=== PATIENT | male | born 1980 | race Caucasian/White ===

== ENCOUNTER 2016-12-31 11:09 | Inpatient (IN) | payer MEDICAID ==
--- NOTE | 2016-12-31 11:25 | CPEKG ---
Heart Rate: 125 RR Interval: 480 QRSD Interval: 108 QT Interval: 336 QTC Interval: 485 QRS [place]: 75 T Wave [place]: 78 EKG Severity - ABNORMAL ECG - EKG Impression: ATRIAL FLUTTER, A-RATE 220 EKG Impression: TIEN OF NORMAL SINUS RHYTHM PRIOR TO THE RUN OF ATRIAL FIB/FLUTTER Electronically Signed By: Caden Morris 02-Jan-2017 08:45:42
[2016-12-31 12:08] LABS: % IMMATURE GRANULYOCYTES 0.2 % (0.0-1.1); ABSOLUTE IMMATURE GRANULOCYTES 0.01 10^3/uL (0.00-0.10); ADD DIFF? NO; ADD MORPH? NO; ADD SCAN? NO; ATYPICAL LYMPHOCYTE FLAG 10 (0-99); FRAGMENT RBC FLAG 0 (0-99); HEMATOCRIT 52.7 % (40.0-51.0); HEMOGLOBIN 18.2 g/dL (13.7-17.5); LEFT SHIFT FLG 0 (0-99); LIPEMIA HEMOLYSIS FLAG 90 (0-99); MEAN CELL HEMOGLOBIN 29.4 pg (27.9-34.1); MEAN CELL HEMOGLOBIN CONCENTR. 34.5 g/dL (32.4-36.7); MEAN CELL VOLUME 85.3 fL (81.5-99.8); MEAN PLATELET VOLUME 9.9 fL (8.7-11.7); PLATELET CLUMPS FLAG 10 (0-99); PLATELET COUNT 242 10^3/uL (150-400); RED BLOOD CELL COUNT 6.18 10^6/uL (4.40-6.38); RED CELL DISTRIBUTION WIDTH 12.5 % (11.5-15.2)
[2016-12-31 12:18] LABS: ANION GAP 14 mEq/L (8-16); CALCIUM 10.5 mg/dL (8.5-10.4); CARBON DIOXIDE 26 mEq/l (22-31); CHLORIDE 105 mEq/L (97-110); CREATININE 1.1 mg/dL (0.7-1.3); GLOMERULAR FILTRATION RATE > 60; GLUCOSE 92 mg/dL (70-100); SODIUM 145 mEq/L (134-144)
[2016-12-31] MEDS ORDERED: METOPROLOL SUCCINATE XR 25 MG TAB PO ONE (12:30)
--- NOTE | 2016-12-31 13:07 | EDPHY ---
HPI/HX/ROS/PE/MDM Narrative: Chief complaint: Palpitations HPI: Patient is presenting without onset of intermittent palpitations since last night about 6:00 p.m.. He patient was seen in the clinic and sent in for further evaluation. He does state that he takes a supplemental medication, aniracetam, the for concentration. Last took it yesterday morning. Denies any chest pain. No shortness of breath. No fevers or chills. Does not have a family history of coronary artery disease. No history of sudden cardiac in the family. Does not smoke, drinks rare alcohol,, uses occasional marijuana , last was several weeks ago. No other medication or drug use. Does not drink large amounts of caffeine. ROS: 10 point Review of Systems is negative except as noted in the HPI. Physical exam: Gen: Awake, Alert, No Distress HEENT: Nose: no rhinorrhea Eyes: PERRLA, EOMI Mouth: Moist mucosa Neck: Supple, no JVD Chest: nontender, lungs clear to auscultation Heart: S1, S2 normal, no murmur Abd: Soft, non-tender, no guarding Back: no CVA tenderness, no midline tenderness Ext: no edema, non-tender Skin: no rash Neuro: CN II-XII intact, Sensation grossly intact, Strength 5/5 in bilateral upper and lower extremities ED Course: EC:23 sinus rhythm, rhythm change only on the ECG from a sinus rhythm with a normal rate to a narrow complex tachycardia with questionable P-waves verses short pure interval. There is normal p.r. interval on the. With a normal rate. No acute ST or T-wave changes. Twelve lead rhythm strip11:36 intermittent atrial tachycardia with a rate from the 70s to 150s. Episodes of atrial tachycardia last 15-20 seconds and dark coming and going in a sinus subtle type pattern. Clinical course: I have discussed the case and reviewed the ECGs with Dr. Shipley, cardiology. He is recommending admitting the patient overnight. Give the patient a beta-rishi here. Check his electrolytes and TSH. He agrees that the symptoms are likely secondary to the supple with the patient's taking but is and also unfamiliar with this. I have discussed with Dr. Escamilla, hospitalist. Will admit to their service for further evaluation. I have ordered 25 mg of metoprolol p.o. - Data Points Laboratory Results: Laboratory Results 12/31/16 11:30 12/31/16 11:30 12/31/16 11:30 WBC 5.39 10^3/uL (3.80-9.50) RBC 6.18 10^6/uL (4.40-6.38) Hgb 18.2 H g/dL (13.7-17.5) Hct 52.7 H % (40.0-51.0) MCV 85.3 fL (81.5-99.8) MCH 29.4 pg (27.9-34.1) MCHC 34.5 g/dL (32.4-36.7) RDW 12.5 % (11.5-15.2) Plt Count 242 10^3/uL (150-400) MPV 9.9 fL (8.7-11.7) Neut % (Auto) 58.6 % (39.3-74.2) Lymph % (Auto) 28.9 % (15.0-45.0) Nolan % (Auto) 9.5 % (4.5-13.0) Eos % (Auto) 2.2 % (0.6-7.6) Baso % (Auto) 0.6 % (0.3-1.7) Nucleat RBC Rel Count 0.0 % (0.0-0.2) Absolute Neuts (auto) 3.16 10^3/uL (1.70-6.50) Absolute Lymphs (auto) 1.56 10^3/uL (1.00-3.00) Absolute Monos (auto) 0.51 10^3/uL (0.30-0.80) Absolute Eos (auto) 0.12 10^3/uL (0.03-0.40) Absolute Basos (auto) 0.03 10^3/uL (0.02-0.10) Absolute Nucleated RBC 0.00 10^3/uL (0-0.01) Immature Gran % 0.2 % (0.0-1.1) Immature Gran # 0.01 10^3/uL (0.00-0.10) Sodium 145 H mEq/L (134-144) Potassium 4.0 mEq/L (3.5-5.2) Chloride 105 mEq/L (97-110) Carbon Dioxide 26 mEq/l (22-31) Anion Gap 14 mEq/L (8-16) BUN 17 mg/dL (7-23) Creatinine 1.1 mg/dL (0.7-1.3) Estimated GFR > 60 Glucose 92 mg/dL (70-100) Calcium 10.5 H mg/dL (8.5-10.4) TSH 2.350 uIU/mL (0.465-4.680) General Time Seen by Provider: 12/31/16 11:21 Initial Vital Signs: Initial Vital Signs Temperature (C) 36.4 C 12/31/16 11:11 Heart Rate 88 12/31/16 11:11 Respiratory Rate 16 12/31/16 11:11 Blood Pressure 137/94 H 12/31/16 11:11 O2 Sat (%) 98 12/31/16 11:11 O2 Delivery Mode Room Air Allergies/Adverse Reactions: No Known Allergies Allergy (Unverified 12/31/16 11:16) Home Medications: Medication Instructions Recorded NK [No Known Home Meds] 12/31/16 Departure - Departure Disposition: [facility] Inpatient Acute Clinical Impression: Tachycardia Condition: Fair
--- NOTE | 2016-12-31 17:00 | GHP ---
[f rep st] HISTORY AND PHYSICAL DATE OF ADMISSION: 12/31/2016 CHIEF COMPLAINT: Palpitations. HISTORY OF PRESENT ILLNESS: A 36-year-old male with no significant past medical history who presents with approximately 12 hours of palpitations. Patient reports being in his normal state of health th e day prior to presentation. Normal oral intake of both food and fluids, and then patient developed sensation of a rapid heart rate around 5:00 p.m., associated intermittently with an uncomfortable sen sation in his chest and some shortness of breath. The patient denied any vision changes, any headach e, any nausea or vomiting, abdominal discomfort, dysuria, hematuria, melena, lower extremity edema or rashes. The patient reports recently taking higher doses of an oral supplement that he uses for cog nition. He believes there is a stimulant component in this and may be the culprit for the tachycardi a. The patient reports that previously intermittent episodes of rapid heart rate which would occur a nd resolve nearly spontaneously, never a prolonged episode as he has experienced at its worst in the last 12 hours. Patient has had extreme dizziness and sensation he may pass out. PAST MEDICAL HISTORY: None. SOCIAL HISTORY: Negative for tobacco. Rare alcohol. No marijuana or illicit drugs. FAMILY HISTORY: Positive for diabetes in his mother. REVIEW OF SYSTEMS: A 10-point review of systems is negative with the exception as reported in the HP I. ADVANCED DIRECTIVES: Patient is full cor, full tube. His partner would be his medical decision make r. PHYSICAL EXAMINATION: VITAL SIGNS: Blood pressure is 124/76, heart rate 138, respiratory rate 15, 9 6% on room air, 36.9. GENERAL: This is a healthy-appearing young male in mild distress. HEENT: Not able for moist mucous membranes. EYE: Negative for any icterus. CARDIAC: Patient sounds irregular ly irregular and tachycardic. PULMONARY: Good respiratory effort. Clear to auscultation bilaterall y. GASTROINTESTINAL: Positive bowel sounds. ABDOMEN: Soft and nontender in all 4 quadrants. MUSC ULOSKELETAL: Negative for any lower extremity edema. SKIN: Negative for any rashes. NEUROLOGIC: Patient is alert and oriented x3. PSYCHIATRIC: He appears anxious on my interview and examination. DATA: White count 5.3, hematocrit 52.7. Sodium 145, creatinine 1.1. EKG, which I personally review ed and interpreted, shows atrial tachycardia with ST flattening in leads V4 through V6. ASSESSMENT AND PLAN: This is a 36-year-old male, presenting with palpitations. 1. Acute intermittent atrial tachycardia visualized on EKG as well as telemetry. The patient's stri ps have been reviewed by Electrophysiology who recommend metoprolol dosing for rate control. We will send a TSH and monitor the patient post beta blockade, as well as a transthoracic echocardiogram to rule out anatomic abnormalities. 2. Anxiety. Patient does sound like he has undue stressors related to work and unemployment and the [facility] job interviews which was the reason for him taking these increased dosing of cognitive suppleme ntation. We will not initiate any pharmacotherapy at this time, but monitor. 3. Prophylaxis. Patient is ambulating. DIET: Regular. DISPOSITION: I expect less than 2 midnights, if patient's monitoring remains stable overnight with b eta blockade and his imaging is normal. I have reviewed the case with the emergency room physician. Patient will be triaged to the [facility] for monitoring and care. /[id number]/MODL
--- NOTE | 2016-12-31 22:21 | GCON ---
[f rep st] CONSULTATION CARDIOLOGY CONSULTATION REASON FOR CONSULTATION: Episodes of accelerated heart rate. HISTORY OF PRESENT ILLNESS: The patient is a 36-year-old male who reports he has been in his usual state health, does report using occasional supplements for memory. He reports that he has taken multiple year use, but takes it occasionally once or twice a week of medication aniracetam. Reporting over the last 3 days he has been taking it regularly. Reports taking last dose at noon yesterday. Around 5:00 p.m., he noticed that his heart rate started racing for small episodes, usually lasting 10-15 seconds, and then would subside. He did notice lightheadedness when he was standing having these episodes, but no syncopal events. Denies any chest pain or shortness of breath. Denies any orthopnea, PND, edema, or symptoms suggestive of TIA or CVA. He thought overnight that the symptoms would subside, but woke up this morning with continuation of symptoms, and came to [facility] Emergency Department. Upon arrival, electrocardiogram was done which showed sinus rhythm with questionable atrial flutter, with burst rates that last up to 30-40 seconds , with rates as high as recorded 180-200 beats per second. Emergency department did talk to Dr. Shipley, who instructed them to start him on metoprolol succinate and admit the patient for observation. He has been in the [facility]. He reports since arriving to this department, he continues to feel palpitations, but has had no further episodes of lightheadedness. He denies any recent fevers , chills, night sweats, or symptoms suggesting infection. Denies any bleeding issues. Denies any significant family history of coronary artery disease. Denies any family history of sudden cardiac or unexplained . PAST MEDICAL HISTORY: Patient denies any significant past medical history. 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 He denies any smoking, occasional alcohol use, does report occasional marijuana use, but reports he has not had any in at least a month and a half. ALLERGIES: Patient has no known drug allergies. MEDICATIONS: At home, the patient admits to taking vitamins and supplement, most often aniracetam 1-2 times a week for the last 2-3 years to help with his memory, and to prevent vascular disease. REVIEW OF SYSTEMS: A 10-point review of system was done and all negative, except as mentioned above. PHYSICAL EXAM: GENERAL APPEARANCE: Thin, well-groomed, male. He is alert and oriented to person, place, time, and situation. Appears to be in no acute distress. VITAL SIGNS: Current vital signs are blood pressure 129/81, heart rate of 74 beats per minute. Respirations are 12 breaths per minute, saturating 94% on room air, temperature of 36.4 degrees Celsius. HEENT: Head is normocephalic. Lips and tongue are pink and moist with no signs cyanosis. Conjunctivae pink. NECK: Trachea is midline, +2 carotid pulses bilateral. No auscultated bruits, no jugular vein distention. RESPIRATORY: Lungs clear to auscultation, no rhonchi, rales or wheezes. No accessory muscle use, no intercostal muscle retraction noted. CARDIAC: Regular rate regular rhythm, S1 , S2, no S3, S4, rubs, gallops or murmur noted. ABDOMEN: Soft, nontender. Bowel sounds x4 quadrants. No organomegaly, no palpable masses. SKIN: [place], warm, dry, no cyanosis, no clubbing. No peripheral edema. VASCULAR: +2 carotids bilateral, +2 radials bilateral, +2 dorsal pedal and posterior tibial pulses bilateral. NEURO: Cranial nerves 2-12 grossly intact. LABORATORY STUDIES: WBC 5.39, hemoglobin 18.2, hematocrit 52.7, platelet count 242. Sodium 142, potassium 4.0, chloride 105, BUN 17, creatinine 1.1, glucose 92, calcium 10.5, TSH 2.350. Electrocardiogram: As mentioned above. ASSESSMENT AND PLAN: A 36-year-old male with new onset of palpitations noting to have runs of what appeared to be atrial flutter/atrial tachycardia with rates up to 120 beats per minute for less than a few minutes with associated symptoms of lightheadedness. Question mild dehydration, with elevated hemoglobin and hematocrit and sodium level, but besides elevated at 145. TSH 2.350 within normal limits. Patient does admit to taking supplements, aniracetam. I have attempted to do a medical review of any potential side effects of aniracetam, but have not found anything. I will ask the pharmacist to do further evaluation of potential adverse reactions of this medication. Also, due to his accelerated fast heart rates, I would like him to undergo echocardiogram to evaluate cardiac structure and function. We will continue monitoring him after taking metoprolol succinate, and repeat his electrolyte levels. I will have him get a magnesium level off his emergency department labs. We will continue patient on telemetry monitoring for the next few hours. He denies any symptoms suggesting of cardiac ischemia, and does not appear to have any signs of heart failure. Thank you for this consultation. We will be glad to follow along with you. Addendum Keon Shipley-patient's case discussed with Jose Santos, agree with plan. Patient will be followed as an outpatient. /[id number]/MODL MTDD
[2017-01-01 07:00] LABS: ANION GAP 8 mEq/L (8-16); CALCIUM 9.5 mg/dL (8.5-10.4); CARBON DIOXIDE 24 mEq/l (22-31); CHLORIDE 109 mEq/L (97-110); GLOMERULAR FILTRATION RATE > 60; GLUCOSE 98 mg/dL (70-100); MAGNESIUM 2.1 mg/dL (1.6-2.3); SODIUM 141 mEq/L (134-144)
[2017-01-01] MEDS ORDERED: METOPROLOL SUCCINATE XR 25 MG TAB PO SCH (09:00)
--- NOTE | 2017-01-01 09:32 | CPEKG ---
Heart Rate: 58 RR Interval: 1034 P-R Interval: 172 QRSD Interval: 96 QT Interval: 380 QTC Interval: 374 P [place]: 65 QRS [place]: 59 T Wave [place]: 42 EKG Severity - NORMAL ECG - EKG Impression: SINUS RHYTHM EKG Impression: SINUS RHYTHM HAS REPLACED ATRIAL FIB/FLUTTER Electronically Signed By: Caden Morris 02-Jan-2017 08:46:01
--- NOTE | 2017-01-01 09:53 | ECHO ---
[id number] + + [address] : : [place] [address] : : [phone] + + Adult Echocardiographic Report + -------+ :Name: Latonya STALLWORTH Date: 12/31/2016 02:41 PM : : Hospital Admission Number: [id number] Locati on: 142: :: 1980 Gender: Male Height: 70 in : :Age: 36 yrs Race: WH Weight: 160 lb : :Reason For Study: Atrial tachycardia : : BSA: 1.9 meter s2 : + -------+ MMode/2D Measurements \T\ Calculations IVSd: 1.0 cm LVIDd: 4.7 cm FS: 43.0 % Ao root diam: LVPWd: 0.74 cm LVIDs: 2.7 cm EDV(Teich): 3.5 cm 103.4 ml LA dimension: ESV(Teich): 3.3 cm 26.8 ml EF(Teich): 74.1 % LVLd ap4: 7.7 cm SV(MOD-sp4): EDV(MOD-sp4): 50.0 ml 74.0 ml LVLs ap4: 6.8 cm ESV(MOD-sp4): 24.0 ml EF(MOD-sp4): 67.6 % Normal Measurement Values: + + :LVIDd (3.5-5.7cm) IVSd (0.6-1.1cm) LVPWd (0.6-1.1cm) Aortic Root (2.0-3.7cm)Left Atrium (1.5-4.0cm): :LV Vol(d) (76-115ml) LV Vol(s) (29-48ml) Ejec Fraction (50-65%)PV Jhonatan (0.6- 1.2m/s) TV Jhonatan (0.4-1.0m/s) : :MV E Jhonatan (0.8-1.0m/s)MV A Jhonatan (0.3-1.0m/s)LVOT Jhonatan (0.7-1.2m/s) Asc Ao Jhonatan ( 0.9-1.8m/s) : + + Doppler Measurements \T\ Calculations MV E max jhonatan: 54.8 cm/sec Ao V2 max: 95.0 cm/sec TR max jhonatan: 178.0 cm/sec MV A max jhonatan: 43.9 cm/sec Ao max P.6 mmHg TR max P.7 mmHg MV E/A: 1.2 RAP systole: 5.0 mmHg RVSP(TR): 17.7 mmHg Left Ventricle The left ventricle is normal in size. There is normal left ventricular wall thickness. Left ventricular systolic function is normal. Ejection Fraction = 65-70%. No regional wall motion abnormalities noted. Right Ventricle The right ventricle is normal in size and function. Atria The left atrial size is normal. Right atrial size is normal. The interatrial septum is intact with no evidence for an atrial septal defect. Mitral Valve The mitral valve is normal in structure and function. There is no evidence of mitral valve prolapse. There is no mitral valve stenosis. There is trace mitral regurgitation. Tricuspid Valve Normal tricuspid valve. There is trace to mild tricuspid regurgitation. Right ventricular systolic pressure is normal. Aortic Valve The aortic valve is trileaflet. The aortic valve opens well. There is no aortic stenosis. There is no aortic insufficiency. Pulmonic Valve The pulmonic valve is normal in structure and function. Great Vessels The aortic root is normal size. Pericardium/Pleural There is no pericardial effusion. Conclusion A complete two-dimensional transthoracic echocardiogram was performed (2D, M-mode, Doppler and color flow Doppler). Left ventricular systolic function is normal. Ejection Fraction = 65-70%. There is trace mitral regurgitation. There is trace to mild tricuspid regurgitation. Right ventricular systolic pressure is normal. Final Reading Physician: Tian Paulino signed on 01/01/2017 09:52 AM Ordering Physician: Ronda Escamilla Performed By: Shirley Mijares, SHELTONCS
[2017-01-01] MEDS ORDERED: METOPROLOL SUCCINATE XR 25 MG TAB PO ONE (13:30)
--- NOTE | 2017-01-01 14:54 | CPR ---
[f rep st] NONINVASIVE CARDIAC PROCEDURE REPORT EXERCISE TREADMILL TEST INDICATION: Patient noted to have long episodes of SVT up to a minute with rates up to 220 beats per minute yesterday in the emergency department. The patient has been started on beta blockage therapy, and evaluate for arrhythmias at higher heart rates. PRE: After obtaining informed consent, patient was placed on electrocardiogram. Initial EKG showed sinus rhythm with occasional PAC. Noted occasional 4- to 5-beat run of SVT with rates up to 150 BPM. The patient denies any chest pain, shortness of breath, or symptoms suggestive of ischemia. Denies any lightheadedness. Initial blood pressure of 114/72, saturation 94%. STRESS: The patient was placed on an exercise treadmill, following standard Garett protocol, with the following findings: 1. Patient was able to exercise for 11 minutes 50 seconds, 12.1 mets. 2. Obtaining a heart rate of 180 BPM which was 97% of MPHR. 3. The patient was noted to have upsloping [address] depression in multiple leads , nondiagnostic of ischemia. 4. The patient had no chest pain. 5. The patient did have small runs of SVT for 5-6 beats during rest and initial exercise, but once heart rate was greater than 150 BPM, no further episodes were noted. 6. BP variation Rest 114/72, peak 138/82. 7. SpO2 greater than 90%. 8. Test was stopped due to maximum effort. 9. Hurtado treadmill score of 11, placing patient at low cardiovascular risk. RECOVERY: Patient recovered for 6 minutes, with heart rate decreasing down to 110 beats per minute. No arrhythmias noted during the recovery stage. The patient remained asymptomatic, vital signs stable. IMPRESSION: A 36-year-old male admitted to the hospital for complaint of palpitations, found to have significant runs of supraventricular tachycardia with rates up to 200 beats per minute. Was started on beta blockage therapy yesterday and underwent exercise treadmill testing to evaluate for arrhythmias during that. Since starting beta blockage therapy, has significantly reduced episodes of supraventricular tachycardia, and when he does, it is only for 4-5 beats at a slow rate of 150 BPM. He is asymptomatic. Exercise treadmill showed no sustained supraventricular tachycardia with exercise. No signs of ischemia. Hurtado treadmill score of 11, placing patient at low cardiovascular risk. Reports gone over with Dr. Shipley and a call to Dr. Escamilla. /[id number]/MODL MTDD
--- NOTE | 2017-01-01 16:29 | PDCARPN ---
Cardiology Progress Note Chief Complaint: Patient reporting episodes of lightheadedness with palpitations. Assessment/Plan: Assessment: 36-year-old male with no significant cardiac history admitted yesterday for episodes of palpitations with associated symptoms lightheadedness. Found to have runs atrial tachycardia up to 1 minute with associated symptoms of lightheadedness. Echocardiogram done on admission showed normal LV size and systolic function with EF of 65-70%, trace MR, trace to mild TR, RVSP within normal limits. No anemia, normal TSH, this a.m. a normal electrolyte. Patient started on metoprolol succinate at 25 mg p.o. q.day, noticing significant reduction of events, and when he does have runs of atrial tachycardia, her last for only a his 4-5 beats this a.m.. Patient underwent ETT to evaluate for arrhythmias with the stress, no signs of ischemia peak exercise, noted discontinue have small runs of a tach for 4-5 beats, but no sustained arrhythmias noted. Patient tolerated well. Once back in room, with rest, patient started having longer runs of a tach with associated symptoms of lightheadedness, lasting to 30 seconds with rates up to [address] Shipley:. Plan: 1. Paroxysmal Atrial tachycardia: Due to increased runs post stress testing, patient given a 2nd dose of 25 mg p.o. today of metoprolol succinate. He will monitor on telemetry overnight to assure no sustained arrhythmia. Patient's has been encouraged to not continue taking any more aniracetam. She has discussed with Dr. Shipley and Dr. Escamilla. 01/01/17 16:26 Subjective: Is patient reports episodes of palpitations with lightheadedness, denies of any chest pain or shortness of breath, orthopnea, PND, edema, near-syncope or syncopal events. Reviewed/Discussed With: hospitalist (Dr. Escamilla), other (Dr. Shipley) Objective: Vital Signs (8 Hrs) Temp Pulse Resp BP Pulse Ox 01/01/17 12:14 36.8 C 98 14 127/83 H 95 01/01/17 09:40 74 111/72 Intake/Output (24 Hrs) 12/31/16 01/01/17 01/02/17 05:59 05:59 05:59 Other: Weight 72.575 kg Result Diagrams: 12/31/16 11:30 01/01/17 05:49 - Physical Exam Constitutional: WDWN, healthy appearing Ears, Nose, Mouth, Throat: moist mucous membranes Cardiovascular: regular rate and rhythm, no murmurs, no rubs, no gallops, No jugular vein distention Peripheral Pulses: 2+: carotid (R), carotid (L), dorsalis-pedis (R), dorsalis- pedis (L) Respiratory: clear to auscultate bilat, no crackles, no wheezes Gastrointestinal: normoactive bowel sounds Neurologic: AAOx3, CN II-XII grossly intact Psychiatric: cooperative, interactive, following commands, not anxious ICD10 Worksheet Patient Problems: Problems Problem Status Onset Tachycardia Acute
--- NOTE | 2017-01-01 16:41 | HOSPPROG ---
Hospitalist Progress Note Assessment/Plan: # Acute atrial tachycardia - recurrent overnight - with associated dizziness TELE (personally reviewed and interpreted) with several short runs of atrial tach in 140's oxygen saturations 95% on RA- tsh normal on admit- ? if related to outpt supplement - ECHO - ETT - uptitrate metoprolol to 50mg xl and monitor overnight # proph - ambulating # diet - regular # dispo - will need to stay tonight for additional monitoring - with change to inpt I have discussed the case with cardiology - will extend monitoring due to recurrent dysrhythmia and symptoms Objective: Vital Signs Temp Pulse Resp BP Pulse Ox 36.8 C 98 14 127/83 H 95 01/01/17 12:14 01/01/17 12:14 01/01/17 12:14 01/01/17 12:14 01/01/17 12:14 Laboratory Results 01/01/17 05:49 - Physical Exam Constitutional: no apparent distress Eyes: anicteric sclera Ears, Nose, Mouth, Throat: moist mucous membranes Cardiovascular: regular rate and rhythym Respiratory: no respiratory distress, no rales or rhonchi Gastrointestinal: normoactive bowel sounds Genitourinary: no bladder fullness Skin: warm, normal color Musculoskeletal: full muscle strength Neurologic: AAOx3 Psychiatric: interacting appropriately, not anxious Lymph, Heme, Immunologic: no cervical LAD ICD10 Worksheet Patient Problems: Problems Problem Status Onset Tachycardia Acute
[2017-01-01 19:26] VITALS: O2SAT 94
[2017-01-02 01:06] LABS: PHENCYCLIDINE URINE BCH < 6 ng/ml (NEGATIVE); PHENCYCLIDINE URINE BCH NEGATIVE (NEGATIVE); TETRAHYDROCANNABINOL URINE < 5 ng/mL (NEGATIVE); TETRAHYDROCANNABINOL URINE NEGATIVE (NEGATIVE)
[2017-01-02 08:10] VITALS: RESP 18; TEMP 98.1
[2017-01-02] MEDS ORDERED: METOPROLOL SUCCINATE XR 50 MG TAB PO SCH (09:00)
[2017-01-02 09:07] VITALS: BP 116/68; PULSE 71
--- NOTE | 2017-01-02 22:05 | GDS ---
[f rep st] DISCHARGE SUMMARY DISCHARGE DIAGNOSIS: Includes atrial tachycardia, intermittent. HISTORY OF PRESENT ILLNESS: A 36-year-old male, who presented to the emergency department with comp laints of palpitations and dizziness. For details of the patient's initial presentation, please see the history and physical dated 12/31/2016. CONSULTATIVE SERVICES: Include Cardiology. PROCEDURES ON THIS PATIENT: On 12/31/2016, patient had a transthoracic echocardiogram that showed n ormal LV size and function. On 01/01/2017, patient had a treadmill stress test that showed no induci ble ischemia. HOSPITAL COURSE BY ISSUE: Atrial tachycardia. Presumption was made it may be related to a supplemen tation that he is taking in the outpatient setting for cognition. Patient was admitted to the [facility] f or cardiac telemetry observation. Patient had recurrent numerous runs of intermittent atrial tachyca rdia with heart rates peaking in the 160s to 180s. He was seen by Cardiology, had effective transtho racic echo and stress testing to rule out any ischemic or underlying anatomic abnormality. Was initi ated on 25 mg of metoprolol extended release. Did have some improvement in the frequency of his epis odes of atrial tach, although they did continue to occur. He was up titrated to 50 mg extended relea se metoprolol and had resolution of his atrial arrhythmia the evening prior to discharge. He is bein g discharged with the 50 mg metoprolol-XL to take daily. An outpatient monitor is being mailed to [facility] patient's home, and he is to follow with Conor Robles in the next 2 weeks' time. We have recommen ded he completely stop the supplementation he was taking in the outpatient setting, remain hydrated, and follow with Cardiology per their instructions. MEDICATIONS AT THE TIME OF DISPOSITION: Please reference medication reconciliation printed on 01/02. PENDING STUDIES AT THE TIME OF THIS DICTATION: None. FOLLOWUP APPOINTMENTS: Include with Conor Robles, appointment arranged for 01/17/2017 at 10 a.m. I spent greater than 30 minutes in the planning and coordination of this discharge. /[id number]/MODL
== END 2017-01-02 11:20 | disposition home or self-care (01) | DRG 310 ==
LOC: F1N 13:25 → INTOOBSV 01-01 16:43 → OBSVTOIN 01-01 16:43
PROVIDERS: ADMIT Hospitalist; ATTEND Hospitalist
DX: I47.1 Supraventricular tachycardia (principal); F41.9 Anxiety disorder, unspecified
CPT/HCPCS: 80307; G0378; G0480